=== PATIENT | female | born 1960 | race Caucasian/White ===

== ENCOUNTER 2024-01-06 06:49 | Outpatient (RCR) | payer OTHER, SELFPAY | END 2024-01-06 23:59 | disposition home or self-care (01) | LOC: RPT 06:49 | PROVIDERS: ATTENDING PHYSICIAN Family Medicine Geriatric Medicine | DX: I97.2 Postmastectomy lymphedema syndrome (principal); C50.912 Malignant neoplasm of unspecified site of left female breast; M25.612 Stiffness of left shoulder, not elsewhere classified; Z73.6 Limitation of activities due to disability; L90.5 Scar conditions and fibrosis of skin; R29.3 Abnormal posture; R53.0 Neoplastic (malignant) related fatigue; Z90.13 Acquired absence of bilateral breasts and nipples | CPT/HCPCS: 97110; 97112; 97140; 97163; 97164; 97530; 97535 ==

== ENCOUNTER 2024-02-03 11:57 | Outpatient (RCR) | payer OTHER, SELFPAY | END 2024-02-03 23:59 | disposition home or self-care (01) | LOC: RPT 11:57 | PROVIDERS: ATTENDING PHYSICIAN Family Medicine Geriatric Medicine | DX: M25.612 Stiffness of left shoulder, not elsewhere classified (principal); Z73.6 Limitation of activities due to disability; L90.5 Scar conditions and fibrosis of skin; R29.3 Abnormal posture; R53.0 Neoplastic (malignant) related fatigue | CPT/HCPCS: 97110; 97112; 97140; 97530 ==

== ENCOUNTER → 2024-02-10 08:42 | Outpatient (REF) | payer OTHER, SELFPAY ==
--- NOTE | 2024-02-10 10:10 | CARDSERVDEF ---
Echocardiogram with Definity completed after protocol screening completed. Allergies verified.
Patent IV site: _R wrist____
IV site flushed with 0.9% NaCl pre and post administration.
Diluted bolus method utilized to enhance visualization of ventricular salcedo.
Total volume given: __6__ mL
Patient tolerated all procedures well without complications.
--- NOTE | 2024-02-10 10:29 | PTCARENOTE ---
Echo with Definity completed by Cardiac Services team (refer to previous note). Right antecubital IV Heplock D/C ed this RN post procedure, site clear, no redness, no edema. Pressure held, no bleeding. Pr offers no complaints.
== END ==
LOC: RCS 08:42
PROVIDERS: ATTENDING PHYSICIAN Internal Medicine Cardiovascular Disease; FAMILY PHYSICIAN Family Medicine
DX: R06.00 Dyspnea, unspecified (principal); T45.1X5D Adverse effect of antineoplastic and immunosuppressive drugs, subsequent encounter
CPT/HCPCS: 93017; 93350; Q9957

== ENCOUNTER → 2024-02-23 07:21 | Outpatient (REF) | payer OTHER, SELFPAY | LOC: RCS 07:21 | PROVIDERS: ATTENDING PHYSICIAN Internal Medicine Cardiovascular Disease; FAMILY PHYSICIAN Family Medicine | DX: R06.00 Dyspnea, unspecified (principal); T45.1X5D Adverse effect of antineoplastic and immunosuppressive drugs, subsequent encounter | CPT/HCPCS: 93306; 93356 ==

== ENCOUNTER 2024-03-01 06:39 | Outpatient (RCR) | payer OTHER, SELFPAY | END 2024-03-07 23:59 | disposition home or self-care (01) | LOC: RPT 06:39 | PROVIDERS: ATTENDING PHYSICIAN Family Medicine Geriatric Medicine | DX: M25.612 Stiffness of left shoulder, not elsewhere classified (principal); C50.912 Malignant neoplasm of unspecified site of left female breast; Z73.6 Limitation of activities due to disability; L90.5 Scar conditions and fibrosis of skin; R29.3 Abnormal posture; R53.0 Neoplastic (malignant) related fatigue | CPT/HCPCS: 97110; 97140; 97530; 97535 ==

== ENCOUNTER → 2024-03-18 09:58 | Outpatient (REF) | payer OTHER, SELFPAY | LOC: RAD 09:58 | PROVIDERS: ATTENDING PHYSICIAN Internal Medicine Cardiovascular Disease | DX: C50.412 Malignant neoplasm of upper-outer quadrant of left female breast (principal); R06.00 Dyspnea, unspecified; I35.8 Other nonrheumatic aortic valve disorders | CPT/HCPCS: 75574; Q9967 ==

== ENCOUNTER → 2025-07-10 13:35 | Outpatient (REF) | payer BC, SELFPAY | LOC: RCS 13:35 | PROVIDERS: ATTENDING PHYSICIAN Internal Medicine Cardiovascular Disease; FAMILY PHYSICIAN Nurse Practitioner Family | DX: Z85.3 Personal history of malignant neoplasm of breast (principal); Z92.3 Personal history of irradiation | CPT/HCPCS: 93306; 93356 ==